=== PATIENT | male | born 1955 | race Hispanic/Latino ===

== ENCOUNTER 2018-01-15 20:52 | Emergency (ER) | payer MEDICARE ==
[~2018-01-15 20:52] MED LIST: ASPI-1197 PO; ATOR10TA69 PO; MULT1CAP32 PO; TAMS0.4C32 PO; TRAM1TAB PO
[2018-01-15] MEDS ORDERED: DEXAMETHASONE SOD PHOSPHATE 10MG/ML 1ML VIAL ONE (23:16)
== END 2018-01-15 23:29 | disposition home or self-care (01) ==
LOC: EDH 20:52
DX: H68.003 Unspecified Eustachian salpingitis, bilateral (principal); I25.10 Atherosclerotic heart disease of native coronary artery without angina pectoris; E78.5 Hyperlipidemia, unspecified
CPT/HCPCS: 96372; 99283; J1100

== ENCOUNTER 2020-02-27 17:51 | Emergency (ER) | payer MEDICARE ==
[2020-02-27] MEDS ORDERED: SODIUM CHLORIDE 0.9% 500ML 500 ML IV ONE (17:52)
[2020-02-27] MEDS ORDERED: SODIUM CHLORIDE IRRIG SOLUTION 1,000 ML IR ONE (17:52)
[2020-02-27] MEDS ORDERED: MECLIZINE HCL 25 MG TABLET ONE ×2 (18:12→19:59)
[2020-02-27] MEDS ORDERED: ONDANSETRON ODT 4 MG TAB ONE (18:12)
[2020-02-27 18:37] LABS: BASOPHILS % (AUTO) 0.5 % (0.0-5.0); EOSINOPHILS % (AUTO) 0.4 % (0.0-8.0); HEMATOCRIT 48.9 % (42-54); MEAN CORPUSCULAR HEMOGLOBIN 27.8 pg (27.0-33.0); MEAN CORPUSCULAR HGB CONC 33.5 g/dL (32.0-36.0); MONOCYTES % (AUTO) 4.4 % (3.0-13.0); NEUTROPHILS % (AUTO) 81.3 % (40.0-77.0); PLATELET COUNT (AUTO) 222 K/uL (130-400); RED BLOOD CELL COUNT(AUTO) 5.89 MIL/uL (4.50-6.20); RED CELL DISTRIBUTION WIDTH 12.8 % (11.0-15.5)
[2020-02-27 18:45] LABS: POTASSIUM 4.5 mmol/L (3.5-5.1)
[2020-02-27 18:50] LABS: ALBUMIN 4.2 g/dL (3.5-5.0); BILIRUBIN,TOTAL 0.4 mg/dL (0.2-1.0); TOTAL PROTEIN, SERUM 8.3 g/dL (6.0-8.3)
== END 2020-02-27 21:23 | disposition home or self-care (01) ==
LOC: EDH 17:51
DX: H81.10 Benign paroxysmal vertigo, unspecified ear (principal); I10 Essential (primary) hypertension; E78.5 Hyperlipidemia, unspecified; I25.10 Atherosclerotic heart disease of native coronary artery without angina pectoris; Z87.891 Personal history of nicotine dependence
CPT/HCPCS: 36415; 80053; 85025; 93005; 96360; 96361; 99284; J7040

== ENCOUNTER 2020-11-29 08:39 | Day surgery (SDC) | payer MEDICARE ==
[2020-11-22 10:39] LABS: BASOPHILS % (AUTO) 0.6 % (0.0-5.0); EOSINOPHILS % (AUTO) 3.6 % (0.0-8.0); HEMATOCRIT 46.6 % (42-54); LYMPHOCYTES % (AUTO) 27.6 % (21.0-51.0); MEAN CORPUSCULAR HGB CONC 33.9 g/dL (32.0-36.0); MEAN CORPUSCULAR VOLUME 82.6 fL (79-99); MONOCYTES % (AUTO) 6.3 % (3.0-13.0); NEUTROPHILS % (AUTO) 61.7 % (40.0-77.0); PLATELET COUNT (AUTO) 230 K/uL (130-400); RED BLOOD CELL COUNT(AUTO) 5.64 MIL/uL (4.50-6.20)
[2020-11-22 10:48] LABS: POTASSIUM 4.2 mmol/L (3.5-5.1)
[2020-11-22 11:31] LABS: INR 1.06 (0.85-1.15); PROTHROMBIN TIME 11.3 SEC (9.6-11.6)
[2020-11-22 11:33] LABS: PARTIAL THROMBOPLASTIN TIME 30.4 SEC (26.3-35.5)
[2020-11-22 11:39] LABS: APPEARANCE,URINE Cloudy (CLEAR); BILIRUBIN,URINE Negative (NEGATIVE); COLOR,URINE Yellow (YELLOW); GLUCOSE, URINE (UA) Negative (NEGATIVE); KETONES,URINE Negative (NEGATIVE); LEUKOCYTE ESTERASE ,URINE Large (NEGATIVE); NITRATE,URINE Negative (NEGATIVE); OCCULT BLOOD,URINE Small (NEGATIVE); PH,URINE 5.5 (5.0-8.0); PROTEIN,URINE POS 1+ mg/dL (NEGATIVE); UROBILINOGEN,URINE 0.2 mg/dL (0.2-1.0)
[2020-11-22 12:21] LABS: BACTERIA,URINE Few /HPF (None Seen); WBC,URINE 51-100 /HPF (0-1)
[2020-11-28 09:23] VITALS: BP 136/87
[~2020-11-29] VITALS: Ht 170.2 cm; Wt 83.9 kg
[~2020-11-29 08:39] MED LIST changes: +ACET1TAB25 PO; -ASPI-1197 PO; -ATOR10TA69 PO; +CEFTRIAXONE SODIUM 1 GM IVP SCH; +LOSA25TA41 PO; -MULT1CAP32 PO; -TAMS0.4C32 PO; -TRAM1TAB PO
[2020-11-29 09:03] VITALS: BP 154/75
[2020-11-29] MEDS ORDERED: GENTAMICIN SULFATE 240 MG in SODIUM CHLORIDE 0.9% 100 ML IV SCH (09:15)
[2020-11-29] MEDS ORDERED: LACTATED RINGERS 1000ML 1,000 ML IV ONE (09:24)
== END 2020-11-29 10:00 | disposition home or self-care (01) ==
LOC: DAH 08:39
PROVIDERS: ATTEND Urology
DX: N40.1 Benign prostatic hyperplasia with lower urinary tract symptoms (principal); I10 Essential (primary) hypertension; M19.90 Unspecified osteoarthritis, unspecified site; Z95.1 Presence of aortocoronary bypass graft; Z20.828 Contact with and (suspected) exposure to other viral communicable diseases; Z79.01 Long term (current) use of anticoagulants; Z79.899 Other long term (current) drug therapy; Z53.8 Procedure and treatment not carried out for other reasons
CPT/HCPCS: 36415; 71045; 80048; 81001; 85025; 85610; 85730; 87077; 87088; 87186; 93005; A4215; A4221; A4222; A4223; A4600; A4657; A4663; A6260; J0696; J1580; J7120; U0003

== ENCOUNTER 2020-12-27 09:29 | Day surgery (SDC) | payer MEDICARE ==
[2020-12-21 11:54] LABS: APPEARANCE,URINE Clear (CLEAR); BILIRUBIN,URINE Negative (NEGATIVE); COLOR,URINE Yellow (YELLOW); GLUCOSE, URINE (UA) Negative (NEGATIVE); KETONES,URINE Negative (NEGATIVE); LEUKOCYTE ESTERASE ,URINE Negative (NEGATIVE); NITRATE,URINE Negative (NEGATIVE); OCCULT BLOOD,URINE Negative (NEGATIVE); PROTEIN,URINE Negative (NEGATIVE); UROBILINOGEN,URINE 0.2 mg/dL (0.2-1.0)
[2020-12-26 11:37] VITALS: BP 158/69
[2020-12-27] VITALS (16 sets, daily range): BP systolic 107–189; BP diastolic 52–98
[~2020-12-27] VITALS: Ht 167.6 cm; Wt 83.0 kg
[~2020-12-27 09:29] MED LIST changes: -ACET1TAB25 PO; -CEFTRIAXONE SODIUM 1 GM IVP SCH; +TAMS-1 PO; +TRAM1TAB PO; +levaquin PO
[2020-12-27] MEDS ORDERED: GENTAMICIN SULFATE 240 MG in SODIUM CHLORIDE 0.9% 100 ML IV SCH (11:21)
[2020-12-27] MEDS ORDERED: SODIUM CHLORIDE 0.9% 1000ML 1,000 ML IV ONE (11:40)
[2020-12-27] MEDS: LEVOFLOXACIN 500 MG/D5W 100 ML 100 ML IV SCH ×2 (11:59→12:35)
[2020-12-27] MEDS ORDERED: LIDOCAINE HCL MPF 1% 5ML VIAL ONE (15:25)
[2020-12-27] MEDS ORDERED: ROCURONIUM 10MG/1ML SYR 10 MG/ML ML ONE (15:25)
[2020-12-27] MEDS ORDERED: ONDANSETRON HCL 4 MG/2 ML VIAL ONE (15:25)
[2020-12-27] MEDS ORDERED: PROPOFOL 10 MG/ML 20ML VIAL IV ONE (15:25)
[2020-12-27] MEDS ORDERED: MIDAZOLAM HCL 1 MG/ML 2ML VIAL ONE (15:25)
[2020-12-27] MEDS ORDERED: FENTANYL CITRATE PF 50 MCG/1 ML 2ML VIAL ONE (15:28)
[2020-12-27] MEDS ORDERED: GLYCOPYRROLATE 1 MG/5 ML SYRINGE ONE (16:55)
[2020-12-27] MEDS ORDERED: NEOSTIGMINE 5MG/5ML SYR IV ONE (16:55)
[2020-12-27] MEDS ORDERED: MEPERIDINE-PF 25 MG/ML SYG ONE ×2 (17:15→17:29)
[2020-12-27] MEDS ORDERED: HYDRALAZINE HCL 20 MG/ML VIAL ONE (17:23)
== END 2020-12-27 18:45 | disposition home or self-care (01) ==
LOC: DAH 09:29
PROVIDERS: ATTEND Urology
DX: D29.1 Benign neoplasm of prostate (principal); Z20.822 Contact with and (suspected) exposure to COVID-19; N41.1 Chronic prostatitis; M19.90 Unspecified osteoarthritis, unspecified site; I10 Essential (primary) hypertension; Z95.1 Presence of aortocoronary bypass graft; Z98.890 Other specified postprocedural states; Z79.899 Other long term (current) drug therapy
CPT/HCPCS: 52648; 81003; 87088; A4215; A4221; A4222; A4223; A4354; A4358; A4663; C9803; J0360; J1580; J2175 ×2; J2250; J2405; J2704; J2710; J3010; J3490 ×2; J7030; J7120; U0003; J1956

== ENCOUNTER 2021-11-30 10:41 | Inpatient (IN) | payer MEDICARE ==
[~2021-11-30] VITALS: Ht 170.2 cm; Wt 81.0 kg
[2021-11-30] MEDS: PHARMACY COMMUNICATION MISC SCH (07:00)
[2021-11-30 11:03] LABS: BASOPHILS % (AUTO) 0.5 % (0.0-5.0); EOSINOPHILS % (AUTO) 0.1 % (0.0-8.0); HEMATOCRIT 51.6 % (42-54); LYMPHOCYTES % (AUTO) 13.4 % (21.0-51.0); MEAN CORPUSCULAR HEMOGLOBIN 27.1 pg (27.0-33.0); MEAN CORPUSCULAR HGB CONC 32.9 g/dL (32.0-36.0); MEAN CORPUSCULAR VOLUME 82.2 fL (79-99); MONOCYTES % (AUTO) 8.2 % (3.0-13.0); NEUTROPHILS % (AUTO) 77.2 % (40.0-77.0); PLATELET COUNT (AUTO) 145 K/uL (130-400); RED BLOOD CELL COUNT(AUTO) 6.28 MIL/uL (4.50-6.20); RED CELL DISTRIBUTION WIDTH 13.8 % (11.0-15.5); WHITE BLOOD COUNT (AUTO) 7.7 K/uL (4.8-10.8)
[2021-11-30 11:31] LABS: ALBUMIN 2.9 g/dL (3.5-5.0); BILIRUBIN,TOTAL 0.9 mg/dL (0.2-1.0); CREATININE 1.2 mg/dL (0.5-1.5); POTASSIUM 3.6 mmol/L (3.5-5.1); TOTAL PROTEIN, SERUM 8.3 g/dL (6.0-8.3)
[2021-11-30 11:33] LABS: ABG HCO3 19.2 mmol/L (21.0-28.0); ABG OXYGEN SATURATION 91.5 % (95.0-99.0); ABG PCO2 28 mmHg (35-48)
[2021-11-30] MEDS ORDERED: DEXAMETHASONE SOD PHOSPHATE 4 MG/ML 1ML VIAL IVP SCH (12:30)
[2021-11-30] MEDS ORDERED: ENOXAPARIN SODIUM 40 MG/0.4 ML SYRINGE SQ SCH ×2 (12:30→21:00)
[2021-11-30] MEDS ORDERED: 0.9%NACL 1000ML 1,000 ML IV SCH ×3 (13:00→17:30)
[2021-11-30 14:30] LABS: HEMOGLOBIN A1C 6.2 % (4.0-6.0)
[2021-11-30] MEDS ORDERED: PHARMACY COMMUNICATION MISC SCH ×2 (14:30→16:30)
[2021-11-30 14:34] LABS: INR 1.05 (0.85-1.15); PROTHROMBIN TIME 11.4 SEC (9.6-11.6)
[2021-11-30 14:35] LABS: PARTIAL THROMBOPLASTIN TIME 32.7 SEC (26.3-35.5)
[2021-11-30 14:49] LABS: ALBUMIN 2.5 g/dL (3.5-5.0); BILIRUBIN,TOTAL 0.7 mg/dL (0.2-1.0); CREATININE 0.9 mg/dL (0.5-1.5); POTASSIUM 3.5 mmol/L (3.5-5.1); THYROID STIMULATING HORMONE 3.09 uIU/mL (0.36-3.74); TOTAL PROTEIN, SERUM 7.3 g/dL (6.0-8.3)
[2021-11-30 15:04] LABS: CRP QUANTITATIVE 192.6 mg/L (0.00-9.0)
[2021-11-30] MEDS ORDERED: COMPOUND IV REFRIGERATED 1 EACH IVSOLN MISC PRN (16:00)
[2021-11-30] MEDS ORDERED: REMDESIVIR (EUA) 520 200 MG in 0.9% NACL 250ML 250 ML IV ONE (16:00)
[2021-11-30] MEDS ORDERED: 0.9% NACL 250ML 250 ML ONE (16:09)
[2021-11-30] MEDS: CEFTRIAXONE 2GM VIAL IVP SCH (16:28)
[2021-11-30] MEDS: DOXYCYCLINE 100MG+NS 250ML IV SCH (16:28)
[2021-11-30] MEDS: DEXAMETHASONE SOD PHOSPHATE 4 MG/ML 1ML VIAL IV SCH (17:00)
[2021-11-30] MEDS: BARICITINIB (EUA) 2 MG TABLET PO SCH (18:10)
[2021-11-30 18:39] LABS: APPEARANCE,URINE Clear (CLEAR); BILIRUBIN,URINE Small (NEGATIVE); COLOR,URINE Dark Yellow (YELLOW); GLUCOSE, URINE (UA) Negative (NEGATIVE); KETONES,URINE Negative (NEGATIVE); LEUKOCYTE ESTERASE ,URINE Negative (NEGATIVE); NITRATE,URINE Negative (NEGATIVE); OCCULT BLOOD,URINE Negative (NEGATIVE); PROTEIN,URINE 300 mg/dL (NEGATIVE)
[2021-11-30 18:56] LABS: BACTERIA,URINE Few /HPF (None Seen); RBC,URINE 0-1 /HPF (0-1); WBC,URINE 0-1 /HPF (0-1)
[2021-11-30 18:57] LABS: MUCUS,URINE Rare LPF (None Seen); SQUAMOUS EPITHELIAL CELL,UR Rare /HPF (0-2)
[2021-11-30] MEDS: LOSARTAN 25 MG TABLET PO SCH (21:30)
[2021-12-01] MEDS ORDERED: 0.9%NACL 100ML 100 ML ONE (02:24)
[2021-12-01] MEDS: DOXYCYCLINE 100MG+NS 250ML IV SCH ×2 (03:05→14:30)
[2021-12-01] MEDS: REMDESIVIR LABS MISC SCH (06:00)
[2021-12-01 06:09] LABS: BASOPHILS % (AUTO) 0.3 % (0.0-5.0); LYMPHOCYTES % (AUTO) 25.6 % (21.0-51.0); MEAN CORPUSCULAR HGB CONC 32.9 g/dL (32.0-36.0); MEAN CORPUSCULAR VOLUME 82.1 fL (79-99); MONOCYTES % (AUTO) 7.6 % (3.0-13.0); NEUTROPHILS % (AUTO) 65.6 % (40.0-77.0); PLATELET COUNT (AUTO) 173 K/uL (130-400); RED BLOOD CELL COUNT(AUTO) 5.97 MIL/uL (4.50-6.20); RED CELL DISTRIBUTION WIDTH 13.9 % (11.0-15.5); WHITE BLOOD COUNT (AUTO) 3.4 K/uL (4.8-10.8)
[2021-12-01 06:29] LABS: ALBUMIN 2.5 g/dL (3.5-5.0); BILIRUBIN,TOTAL 0.5 mg/dL (0.2-1.0); CREATININE 0.7 mg/dL (0.5-1.5); CRP QUANTITATIVE 144.5 mg/L (0.00-9.0); POTASSIUM 3.6 mmol/L (3.5-5.1); TOTAL PROTEIN, SERUM 7.5 g/dL (6.0-8.3)
[2021-12-01] MEDS: PHARMACY COMMUNICATION MISC SCH ×5 (07:00→23:34)
[2021-12-01] MEDS: BARICITINIB (EUA) 2 MG TABLET PO SCH (10:01)
[2021-12-01] MEDS: ENOXAPARIN SODIUM 40 MG/0.4 ML SYRINGE SQ SCH ×2 (10:52→22:16)
[2021-12-01] MEDS: CEFTRIAXONE 2GM VIAL IVP SCH (14:30)
[2021-12-01] MEDS: REMDESIVIR (EUA) 520 100 MG in 0.9% NACL 250ML 250 ML IV SCH (16:11)
[2021-12-01] MEDS: DEXAMETHASONE SOD PHOSPHATE 4 MG/ML 1ML VIAL IV SCH (17:03)
[2021-12-01 20:00] VITALS: BP 148/79
[2021-12-01] MEDS: LOSARTAN 25 MG TABLET PO SCH (22:15)
[2021-12-02] VITALS (7 sets, daily range): BP systolic 133–165; BP diastolic 67–84
[2021-12-02] MEDS: SOLU-MEDROL 125MG VIAL IVP SCH ×4 (00:14→23:02)
[2021-12-02] MEDS: DOXYCYCLINE 100MG+NS 250ML IV SCH ×2 (02:48→13:42)
[2021-12-02 04:41] LABS: HEMATOCRIT 50.1 % (42-54); MEAN CORPUSCULAR HEMOGLOBIN 27.3 pg (27.0-33.0); MEAN CORPUSCULAR HGB CONC 32.9 g/dL (32.0-36.0); MEAN CORPUSCULAR VOLUME 82.8 fL (79-99); RED BLOOD CELL COUNT(AUTO) 6.05 MIL/uL (4.50-6.20); RED CELL DISTRIBUTION WIDTH 13.9 % (11.0-15.5); WHITE BLOOD COUNT (AUTO) 7.2 K/uL (4.8-10.8)
[2021-12-02 04:55] LABS: ALBUMIN 2.6 g/dL (3.5-5.0); BILIRUBIN,TOTAL 0.5 mg/dL (0.2-1.0); CREATININE 0.8 mg/dL (0.5-1.5); TOTAL PROTEIN, SERUM 7.4 g/dL (6.0-8.3)
[2021-12-02] MEDS: REMDESIVIR LABS MISC SCH (06:35)
[2021-12-02 07:16] LABS: ABG BASE EXCESS -1.9 mmol/L (-2.0-3.0); ABG OXYGEN SATURATION 97.1 % (95.0-99.0); ABG PCO2 31 mmHg (35-48)
[2021-12-02] MEDS: ENOXAPARIN SODIUM 40 MG/0.4 ML SYRINGE SQ SCH ×2 (08:08→20:56)
[2021-12-02] MEDS: BARICITINIB (EUA) 2 MG TABLET PO SCH (09:57)
[2021-12-02] MEDS: CEFTRIAXONE 2GM VIAL IVP SCH (13:41)
[2021-12-02] MEDS: INSULIN HUMULIN R 100 UNIT/ML 3ML SQ SCH ×2 (16:30→20:56)
[2021-12-02] MEDS: REMDESIVIR (EUA) 520 100 MG in 0.9% NACL 250ML 250 ML IV SCH (17:08)
[2021-12-02] MEDS: LOSARTAN 25 MG TABLET PO SCH (20:55)
[2021-12-02] MEDS: FAMOTIDINE 20MG VIAL IV SCH (20:55)
[2021-12-03] MEDS: ZOSYN 3.375GM +NS 50ML IV SCH ×3 (01:40→20:31)
[2021-12-03] MEDS: DOXYCYCLINE 100MG+NS 250ML IV SCH ×2 (02:47→15:16)
[2021-12-03 03:43] VITALS: BP 146/75
[2021-12-03] MEDS: INSULIN HUMULIN R 100 UNIT/ML 3ML SQ SCH ×4 (05:01→20:45)
[2021-12-03 05:33] VITALS: BP 163/92
[2021-12-03] MEDS: SOLU-MEDROL 125MG VIAL IVP SCH ×3 (05:38→23:55)
[2021-12-03] MEDS: HYDRALAZINE 20MG/ML VIAL IV PRN ×2 (05:38→08:41)
[2021-12-03] MEDS: REMDESIVIR LABS MISC SCH (06:00)
[2021-12-03 07:25] VITALS: BP 176/74
[2021-12-03 07:44] LABS: HEMATOCRIT 47.2 % (42-54); MEAN CORPUSCULAR HEMOGLOBIN 26.8 pg (27.0-33.0); MEAN CORPUSCULAR HGB CONC 33.3 g/dL (32.0-36.0); MEAN CORPUSCULAR VOLUME 80.7 fL (79-99); RED BLOOD CELL COUNT(AUTO) 5.85 MIL/uL (4.50-6.20); RED CELL DISTRIBUTION WIDTH 13.5 % (11.0-15.5); WHITE BLOOD COUNT (AUTO) 11.2 K/uL (4.8-10.8)
[2021-12-03 08:01] LABS: CREATININE 0.8 mg/dL (0.5-1.5); CRP QUANTITATIVE 32.9 mg/L (0.00-9.0); POTASSIUM 3.1 mmol/L (3.5-5.1)
[2021-12-03] MEDS: FAMOTIDINE 20MG VIAL IV SCH ×2 (08:41→20:31)
[2021-12-03] MEDS: BARICITINIB (EUA) 2 MG TABLET PO SCH (08:41)
[2021-12-03] MEDS: APIXABAN 2.5 MG TABLET PO SCH ×2 (08:42→20:31)
[2021-12-03 11:00] VITALS: BP 150/61
[2021-12-03] MEDS ORDERED: POTASSIUM CHLORIDE 10% ELIXIR 20 MEQ/15 ML UDCUP PO PRN (12:00)
[2021-12-03] MEDS ORDERED: POTASSIUM CHLORIDE 20MEQ/100ML 100 ML IV PRN (12:00)
[2021-12-03] MEDS ORDERED: LIDOCAINE HCL-MPF 1% 2ML VIAL IV PRN (12:00)
[2021-12-03 13:14] LABS: ALBUMIN 2.9 g/dL (3.5-5.0); BILIRUBIN,TOTAL 0.6 mg/dL (0.2-1.0); TOTAL PROTEIN, SERUM 7.3 g/dL (6.0-8.3)
[2021-12-03] MEDS: KCL 20 MEQ ERTAB PO PRN ×3 (13:17→20:30)
[2021-12-03 15:10] VITALS: BP 147/62
[2021-12-03] MEDS: REMDESIVIR (EUA) 520 100 MG in 0.9% NACL 250ML 250 ML IV SCH (18:14)
[2021-12-03 20:00] VITALS: BP 149/85
[2021-12-03] MEDS: LOSARTAN 25 MG TABLET PO SCH (20:30)
[2021-12-04] VITALS: BP 149/76
[2021-12-04] MEDS: DOXYCYCLINE 100MG+NS 250ML IV SCH (00:47)
[2021-12-04 04:00] VITALS: BP 144/71
[2021-12-04] MEDS: ZOSYN 3.375GM +NS 50ML IV SCH (05:05)
[2021-12-04 05:43] LABS: HEMATOCRIT 44.8 % (42-54); MEAN CORPUSCULAR HEMOGLOBIN 27.4 pg (27.0-33.0); MEAN CORPUSCULAR HGB CONC 33.7 g/dL (32.0-36.0); MEAN CORPUSCULAR VOLUME 81.2 fL (79-99); RED BLOOD CELL COUNT(AUTO) 5.52 MIL/uL (4.50-6.20); RED CELL DISTRIBUTION WIDTH 13.8 % (11.0-15.5); WHITE BLOOD COUNT (AUTO) 8.7 K/uL (4.8-10.8)
[2021-12-04] MEDS: REMDESIVIR LABS MISC SCH (06:00)
[2021-12-04] MEDS: INSULIN HUMULIN R 100 UNIT/ML 3ML SQ SCH (06:09)
[2021-12-04] MEDS: SOLU-MEDROL 125MG VIAL IVP SCH (06:17)
[2021-12-04 06:24] LABS: ALBUMIN 2.6 g/dL (3.5-5.0); BILIRUBIN,TOTAL 0.8 mg/dL (0.2-1.0); CREATININE 0.8 mg/dL (0.5-1.5); CRP QUANTITATIVE 18.4 mg/L (0.00-9.0); POTASSIUM 3.6 mmol/L (3.5-5.1); TOTAL PROTEIN, SERUM 6.6 g/dL (6.0-8.3)
[2021-12-04 08:00] VITALS: BP 147/60
[2021-12-04] MEDS: FAMOTIDINE 20MG VIAL IV SCH (08:49)
[2021-12-04] MEDS: APIXABAN 2.5 MG TABLET PO SCH (08:49)
[2021-12-04] MEDS: KCL 20 MEQ ERTAB PO PRN (08:51)
[2021-12-04] MEDS ORDERED: APIX2.5T PO (08:58)
[2021-12-04] MEDS: BARICITINIB (EUA) 2 MG TABLET PO SCH (10:35)
== END 2021-12-04 11:18 | disposition home or self-care (01) | DRG 871 ==
LOC: EDH 10:41 → EDHIP 13:42 → 4BH 12-01 18:35
PROVIDERS: ADMIT Hospitalist; ATTEND Hospitalist
PROC: XW033E5 Introduction of Remdesivir Anti-infective into Peripheral Vein, Percutaneous Approach, New Technology Group 5 (ICD-10-PCS; principal; 2021-11-30)
PROC: XW0DXM6 Introduction of Baricitinib into Mouth and Pharynx, External Approach, New Technology Group 6 (ICD-10-PCS; 2021-11-30)
PROC: 5A09357 Assistance with Respiratory Ventilation, Less than 24 Consecutive Hours, Continuous Positive Airway Pressure (ICD-10-PCS; 2021-11-30)
PROC: 5A0935A Assistance with Respiratory Ventilation, Less than 24 Consecutive Hours, High Flow/Velocity Cannula (ICD-10-PCS; 2021-12-02)
PROC: 5A0935A Assistance with Respiratory Ventilation, Less than 24 Consecutive Hours, High Flow/Velocity Cannula (ICD-10-PCS; 2021-12-03)
DX: A41.89 Other specified sepsis (principal); U07.1 COVID-19; J12.82 Pneumonia due to coronavirus disease 2019; J96.01 Acute respiratory failure with hypoxia; E43 Unspecified severe protein-calorie malnutrition; D68.69 Other thrombophilia; J47.0 Bronchiectasis with acute lower respiratory infection; E11.65 Type 2 diabetes mellitus with hyperglycemia; I10 Essential (primary) hypertension; E87.6 Hypokalemia; N40.0 Benign prostatic hyperplasia without lower urinary tract symptoms; E78.5 Hyperlipidemia, unspecified; R54 Age-related physical debility; I25.10 Atherosclerotic heart disease of native coronary artery without angina pectoris; E78.00 Pure hypercholesterolemia, unspecified; E86.0 Dehydration; Z53.29 Procedure and treatment not carried out because of patient's decision for other reasons; J43.9 Emphysema, unspecified; Z68.28 Body mass index [BMI] 28.0-28.9, adult; Z88.6 Allergy status to analgesic agent; Z79.01 Long term (current) use of anticoagulants; Z92.21 Personal history of antineoplastic chemotherapy; Z92.3 Personal history of irradiation; Z95.1 Presence of aortocoronary bypass graft; Z85.819 Personal history of malignant neoplasm of unspecified site of lip, oral cavity, and pharynx; Z82.3 Family history of stroke; Z83.3 Family history of diabetes mellitus; Z82.0 Family history of epilepsy and other diseases of the nervous system; Z82.49 Family history of ischemic heart disease and other diseases of the circulatory system
CPT/HCPCS: 36415; 36600; 70450; 71045; 71250; 80053; 81001; 82728; 82803; 82948; 83036; 83605; 83615; 84145; 84443; 84484; 85025; 85027; 85378; 85610; 85730; 86140; 86738; 87040; 87449; 87635; 87804; 93005; 93970; 94667; 94668; 99291; C9803; G0378; J0360; J0696; J1100; J1650; J1815; J2543; J2930; J3490; J7050

== ENCOUNTER 2025-03-03 14:23 | Emergency (ER) | payer OTHER ==
[~2025-03-03] VITALS: Ht 170.2 cm; Wt 88.5 kg
[~2025-03-03 14:23] MED LIST changes: +LEVO25CA5 PO; +LORA10TA7 PO; -LOSA25TA41 PO; +LOSA50TA64 PO; +ROSU40TA88 PO; -TAMS-1 PO; -TRAM1TAB PO; -levaquin PO
[2025-03-03 14:24] VITALS: BP 124/74; PULSE 95; RESP 16; TEMP 97.9
[2025-03-03 14:49] LABS: BASOPHILS # (AUTO) 0.07 K/uL (0.00-0.20); BASOPHILS % (AUTO) 0.7 % (0.0-5.0); EOSINOPHILS # (AUTO) 0.21 K/uL (0.00-0.70); EOSINOPHILS % (AUTO) 2.2 % (0.0-8.0); HEMATOCRIT 43.6 % (42-54); IMMATURE GRANULOCYTE ABSOLUTE 0.04 K/uL (0-1); LYMPHOCYTES # (AUTO) 2.3 K/uL (1.0-4.8); LYMPHOCYTES % (AUTO) 24.3 % (21.0-51.0); MEAN CORPUSCULAR HGB CONC 33.5 g/dL (32.0-36.0); MEAN CORPUSCULAR VOLUME 83.5 fL (79-99); MONOCYTES # (AUTO) 0.7 K/uL (0.1-1.0); MONOCYTES % (AUTO) 7.1 % (3.0-13.0); NEUTROPHILS # (AUTO) 6.1 K/uL (1.8-7.7); NEUTROPHILS % (AUTO) 65.3 % (40.0-77.0); PLATELET COUNT (AUTO) 309 K/uL (130-400); RED BLOOD CELL COUNT(AUTO) 5.22 MIL/uL (4.50-6.20); WHITE BLOOD COUNT (AUTO) 9.4 K/uL (4.8-10.8)
[2025-03-03 15:05] LABS: CREATININE 1.1 mg/dL (0.5-1.3); POTASSIUM 4.2 mmol/L (3.5-5.1)
--- NOTE | 2025-03-03 15:20 | ERN ---
General Chief Complaint: Abdominal Pain Stated Complaint: ABDOMINAL PAIN Time Seen by MD: 14:26 Time Seen by Midlevel: 14:26 Source: patient History of Present Illness Initial Comments The patient is a 69-year-old male with a past medical history of BPH and urinary retention presenting to the emergency department with suprapubic abdominal pain. The patient recently had a Henry placed but was removed four days ago. Since then he has had difficulty urinating. Today he has had an increase in abdominal pain and has been unable to void. Patient believes he may need the Henry placed again. He has a follow up with his urologist later this month. Allergies: Coded Allergies: No Known Drug Allergies (Unverified Allergy, Unknown, 07/01/19) aspirin (Unverified Allergy, Unknown, 11/30/21) Home Meds Reported Medications Rosuvastatin Calcium (Rosuvastatin Calcium) 40 Mg Tablet, 1 TAB PO DAILY for high cholesterol for 30 Days, #30 TAB 0 Refills 02/21/25 Levothyroxine Sodium (Levothyroxine) 25 Mcg Capsule, 25 MCG PO DAILY, CAP 02/21/25 Loratadine (Loratadine) 10 Mg Tablet, 1 TAB PO DAILY for allergy symptoms for 30 Days, #30 TAB 0 Refills 02/21/25 Losartan Potassium (Losartan Potassium) 50 Mg Tablet, 1 TAB PO DAILY for 30 Days, #30 TAB 0 Refills 02/21/25 Past Medical History Past Medical History: CAD, Hypertension Medical History Other: CANCER THROAT, Past Surgical History: Appendectomy, CABG Surgical History Other: HEART STENTS, ABD SX Social History Social History: Other ROS Dictation CONSTITUTIONAL: Negative except for HPI HEAD/FACE: Negative except for HPI EENT: Negative except for HPI RESPIRATORY: Negative except for HPI GASTROINTESTINAL/ABDOMINAL: Negative except for HPI GENITOURINARY: Negative except for HPI MUSCULOSKELETAL: Negative except for HPI INTEGUMENTARY: Negative except for HPI NEUROLOGICAL/PSYCH: Negative except for HPI HEMATOLOGIC/LYMPHATIC: Negative except for HPI All Systems Negative, Except as noted above. 13 point review of systems assessed and all negative except for above. Physical Exam Physical Exam Dictation Vital Signs reviewed General Appearance: Alert, oriented x 3, no acute distress, well developed, nourished. Head and Face: non-traumatic. Eyes: PERRL, pink conjunctivas, eyelid no trauma, anterior chamber with arcus senilis. Ears: Pinnas intact and no signs of trauma or erythema ear canals clear and no discharge TM no erythema Nose: No discharge, no bleeding. Oropharynx: Mouth normal, tongue pink, pharynx clear,no erythema, tonsils no exudates, no abscesses noted, mucous membrane moist Neck: Supple, non-tender, no thyromegaly, no masses, no JVD, no bruits Breast:Deferred Chest:No tenderness, no crepitus, no paradoxical movement, no retractions Lungs:Clear, well-ventilated, symmetric, no rales, no wheezing, no rhonchi, no stridor, good breath sounds bilaterally Heart: Regular rate, regular rhythm, no murmur, no gallops Vascular: no peripheral edema, Abdomen: Soft, positive bowel sounds, nondistended, no guarding, Suprapubic abdominal tenderness, no rebound, no masses no hepatomegaly, no splenomegaly, no Briggs's sign, no hernias. Rectal: Deferred Genital: Deferred Neurological: Normal speech, motor function intact, sensory function intact Musculoskeletal: Neck nontender, full range of motion, back nontender, full range of motion, Extremities: nontender, full range of motion Skin: Color pink, dry, no turgor, no rash, no lacerations, no abrasions, no contusions. Lymphatic: Deferred Results Laboratory and Microbiology Lab and Micro Result Laboratory Tests Test 03/03/25 14:38 White Blood Count 9.4 K/uL (4.8-10.8) Red Blood Count 5.22 MIL/uL (4.50-6.20) Hemoglobin 14.6 g/dL (14.0-18.0) Hematocrit 43.6 % (42-54) Mean Corpuscular Volume 83.5 fL (79-99) Mean Corpuscular Hemoglobin 28.0 pg (27.0-33.0) Mean Corpuscular Hemoglobin Concent 33.5 g/dL (32.0-36.0) Red Cell Distribution Width 13.0 % (11.0-15.5) Platelet Count 309 K/uL (130-400) Mean Platelet Volume 10.0 fL (7.5-10.5) Immature Granulocyte % (Auto) 0.4 % (0-1) Neutrophils (%) (Auto) 65.3 % (40.0-77.0) Lymphocytes (%) (Auto) 24.3 % (21.0-51.0) Monocytes (%) (Auto) 7.1 % (3.0-13.0) Eosinophils (%) (Auto) 2.2 % (0.0-8.0) Basophils (%) (Auto) 0.7 % (0.0-5.0) Neutrophils # (Auto) 6.1 K/uL (1.8-7.7) Lymphocytes # (Auto) 2.3 K/uL (1.0-4.8) Monocytes # (Auto) 0.7 K/uL (0.1-1.0) Eosinophils # (Auto) 0.21 K/uL (0.00-0.70) Basophils # (Auto) 0.07 K/uL (0.00-0.20) Absolute Immature Granulocyte (auto 0.04 K/uL (0-1) Nucleated Red Blood Cells 0.0 % (0.0-0.19) Sodium Level 139 mmol/L (136-145) Potassium Level 4.2 mmol/L (3.5-5.1) Chloride Level 103 mmol/L (101-111) Carbon Dioxide Level 28 mmol/L (21-32) Blood Urea Nitrogen 15 mg/dL (7-18) Creatinine 1.1 mg/dL (0.5-1.3) Glomerular Filtration Rate Calc 72 mL/min (>90) Random Glucose 109 mg/dL (70-105) H Total Calcium 9.2 mg/dL (8.5-10.1) Labs Reviewed?: Yes MDM MDM: The patient is a 69-year-old male with a past medical history of BPH and urinary retention presenting to the emergency department with suprapubic abdominal pain. The patient recently had a Henry placed but was removed four days ago. Since then he has had difficulty urinating. Today he has had an increase in abdominal pain and has been unable to void. Patient believes he may need the Henry placed again. He has a follow up with his urologist later this m [facility]. On physical examination the patient is in [id number] distress. There is suprapubic abdominal tenderness. I have high clinical suspicion for acute urinary retention. A Henry catheter was placed and we received 800 cc of urine output. Patient felt significant relief. CBC and chemistries were obtained to rule out an acute kidney injury however chemistries unremarkable. The patient will be discharged home with a Henry and will be following up with urologist outpatient. Differential diagnosis: Acute urinary retention, ROSALIE, dehydration There are no social concerns with this patient. Prescription drug management Prescriptions will include: None Medical management and examination interpretation discussions were had by me with other qualified healthcare professionals as indicated for the patient's care. ED Course Orders Procedure Category Date Status Time Basic Metabolic Panel LAB 03/03/25 Complete 14: Cbc With Differential LAB 03/03/25 Complete 14:26 Nurse Driven Henry CLAUDIA 03/03/25 In Process Removal Pro 14: Vital Signs Date Time Temp Pulse Resp B/P (MAP) Pulse Ox O2 Delivery O2 Flow Rate FiO2 03/03/25 14:24 97.9 95 16 124/74 98 Room Air DX & DISP Disposition: Discharge Departure Impression: Primary Impression: Acute urinary retention Condition: Stable Referrals: ANTONIO MONTOYA MD (PCP) I have reviewed the case, and I agree with, Diagnosis and Plan I performed the substantive portion of the visit. I have reviewed and person ally made and approve the management plan that is documented in the note by myself or the NICOLETTE. I acknowledge for responsibility for the patient's management plan. MILY CALL March 03, 2025 15:20
== END 2025-03-03 15:47 | disposition home or self-care (01) ==
LOC: EDH 14:23
DX: R33.8 Other retention of urine (principal); R10.30 Lower abdominal pain, unspecified; I10 Essential (primary) hypertension; I25.10 Atherosclerotic heart disease of native coronary artery without angina pectoris; Z79.890 Hormone replacement therapy; Z79.899 Other long term (current) drug therapy; Z88.6 Allergy status to analgesic agent; Z90.49 Acquired absence of other specified parts of digestive tract; Z95.1 Presence of aortocoronary bypass graft; Z95.5 Presence of coronary angioplasty implant and graft
CPT/HCPCS: 36415; 51702; 80048; 85025; 99283

== ENCOUNTER → 2025-04-03 | Outpatient (CLI) | payer OTHER ==
[~2025-04-03] MED LIST changes: +IOHEXOL 350 MG/ML 100ML INFUS..BTL IV ONE
--- NOTE | 2025-04-04 10:46 | HMCIMG ---
CT UROGRAM (ABD/PEL WWO) REASON: HEMATURIA COMPARISON: 02/21/2025 TECHNIQUE: CT abdomen and pelvis was performed before, during and after IV contrast, 100 cc Omnipaque [id number]. Multiple postcontrast of the images are obtained through 25 minutes, for CT urogram technique. Maximum pixel intensity projection images were generated of the ureters and urinary bladder. FINDINGS: Lung bases are clear. There are no focal liver lesions. There are normal-appearing kidneys.. Spleen and pancreas appear unremarkable. The gallbladder appears normal as well. There is moderate sigmoid diverticulosis without evidence of diverticulitis. Bowel loops appear otherwise unremarkable. This includes normal appearance of the appendix There is no evidence of free fluid or intraperitoneal air. There are no focal fluid collections. Aorta and retroperitoneum appear normal. The prostate is enlarged at 7.7 x 6.2 x 6.7 cm. There is a Henry catheter in urinary bladder. Bladder appears moderately thick-walled. The anterior abdominal wall is intact. Osseous structures appear unremarkable. Postcontrast images show normal-appearing kidneys. Kidneys appear normal with no mass, stone or hydronephrosis. Ureters appear normal in course and caliber. CT or gram images also show normal-appearing ureters and pelvicalyceal structures. There is no evidence of ureteral mass or stone. There is no evidence of ureteral narrowing. Urinary bladder appears thick-walled even when partially distended. IMPRESSION: 1. Markedly enlarged prostate isn't 0.7 x 6.2 x 6.7 cm, there is moderate wall thickening of the urinary bladder. 2. Normal-appearing kidneys and ureters on CT urogram (technique abdomen and pelvis. 3. Moderate sigmoid diverticulosis without evidence of diverticulitis. CT was performed with one or more following dose reduction techniques: automated exposure control, adjustment of the mA and kv according to patient's size, or use of a iterative reconstruction technique.
== END | disposition home or self-care (01) ==
LOC: RAH 09:45
PROVIDERS: ATTEND Student in an Organized Health Care Education/Training Program
DX: N40.0 Benign prostatic hyperplasia without lower urinary tract symptoms (principal); K57.30 Diverticulosis of large intestine without perforation or abscess without bleeding; N32.89 Other specified disorders of bladder; R31.9 Hematuria, unspecified; Z96.0 Presence of urogenital implants
CPT/HCPCS: 74178; Q9967

== ENCOUNTER 2025-06-13 00:50 | Emergency (ER) | payer OTHER ==
[~2025-06-13] VITALS: Ht 170.2 cm; Wt 83.0 kg
[~2025-06-13 00:50] MED LIST changes: -IOHEXOL 350 MG/ML 100ML INFUS..BTL IV ONE
[2025-06-13 01:14] VITALS: BP 170/68; PULSE 94; RESP 17; TEMP 97.9; O2SAT 95
--- NOTE | 2025-06-13 01:18 | NUR ---
PER MARIANA PRINCE, LEG BAG REPLACED. NEW BAG ATTACHED TO [place]IN[place] AND DRAINING NORMALLY.
--- NOTE | 2025-06-13 01:21 | ERN ---
General Chief Complaint: Urinary Catheter Problems Stated Complaint: C/O TEAR TO URINE BAG Time Seen by MD: 01:02 Time Seen by Midlevel: 01:02 Source: patient History of Present Illness Initial Comments 69-year-old male who presents to the emergency department due to Henry bag problem. Patient states he was asleep and felt urine leaking out of his bag. H e noticed a hole in the bag. The patient denies any who we discomfort, abdominal pain, fever or further associated symptoms. Allergies: Coded Allergies: No Known Drug Allergies (Unverified Allergy, Unknown, 07/01/19) aspirin (Unverified Allergy, Unknown, 11/30/21) Home Meds Reported Medications Rosuvastatin Calcium (Rosuvastatin Calcium) 40 Mg Tablet, 1 TAB PO DAILY for high cholesterol for 30 Days, #30 TAB 0 Refills 02/21/25 Levothyroxine Sodium (Levothyroxine) 25 Mcg Capsule, 25 MCG PO DAILY, CAP 02/21/25 Loratadine (Loratadine) 10 Mg Tablet, 1 TAB PO DAILY for allergy symptoms for 30 Days, #30 TAB 0 Refills 02/21/25 Losartan Potassium (Losartan Potassium) 50 Mg Tablet, 1 TAB PO DAILY for 30 Days, #30 TAB 0 Refills 02/21/25 Past Medical History Past Medical History: High Cholesterol, Hypertension Medical History Other: CANCER THROAT, Past Surgical History: Other Surgical History Other: HEART STENTS, ABD SX Social History Social History: Other ROS Dictation Constitutional: Negative for fever,chills, and weight loss Eyes: Negative for injury, pain,redness, and discharge ENT: Negative for injury,pain or swelling Cardiovascular: Negative for chest pain, palpitations, and edema Respiratory: Negative for shortness of breath, cough, and wheezing, Abdomen/GI: Negative for abdominal pain, nausea, vomiting, diarrhea, and constipation Back: Negative for injury and pain : Negative for painful urination, bleeding or discharge MS/Extremity: Negative for injury and deformity Skin: Negative for rash, and discoloration Neuro: Negative for headache, weakness, numbness, tingling, and seizure Psych: Negative for suicide ideation, homicidal ideation, and hallucinations Physical Exam Physical Exam Dictation General: awake, alert, no acute distress Head/Face: Normocephalic, atraumatic Eyes: PERRL, EOMI, normal conjunctiva ENT: oral cavity clear, oral mucosa moist Neck: Supple, normal range of motion Cardiovascular: RRR, normal S1/S2 Respiratory: CTAB, no respiratory distress Abdomen: Soft, non-tender, non-distended, no guarding or rebound. Skin: Warm, dry, normal turgor, no rash MS/Extremity: Pulses equal, no cyanosis, neurovascular intact, FROM Neuro: COAx4, GCS 15, strength 5/5, CN 2-12 intact, normal cerebellar exam, normal gait Psych: Normal behavior, mood, and affect normal MDM MDM: Differential diagnosis: UTI, Henry bag problem, catheter problem Rationale: 69-year-old male who presents to the emergency department due to Henry bag problem. Patient states he was asleep and felt urine leaking out of his bag. He noticed a hole in the bag. The patient denies any who we discomfor t, abdominal pain, fever or further associated symptoms. Tear noted on Henry bag, replaced in the emergency department. Patient continued to deny any current symptoms. Advised to follow up with PCP. Return to the emergency department for any worsening symptoms. Patient verbalized understanding. Patient is stable for discharge. There are no social concerns with this patient. I independently interpreted the test that were performed, results were reviewed by me and considered findings on radiology if ordered. Medical management and examination interpretation discussions were had by me with other qualified healthcare professionals as indicated for the patient's care. ED Course Vital Signs Date Time Temp Pulse Resp B/P (MAP) Pulse Ox O2 Delivery O2 Flow Rate FiO2 06/13/25 01:14 97.9 94 17 170/68 95 Room Air* 0 21 06/13/25 00:51 97.5 65 20 177/65 96 Room Air DX & DISP Disposition: Discharge Departure Impression: Primary Impression: Henry catheter problem Condition: Stable Additional Instructions: Discharge home. Rest. Follow up with primary care DrJade in 24 hours. Return to the ER for any acute changes or worsening symptoms. If any medications were prescribed take as directed. Okay to continue home medications unless otherwise discussed during your visit in the emergency room today. Patient was also advised to follow-up with primary care physician in 1 to 2 days for continued monitoring. Referrals: ANTONIO MONTOYA MD (PCP) I performed the substantive portion of the visit. I have reviewed and personally made and approve the management plan that is documented in the notes by myself or the NICOLETTE. I acknowledge full responsibility for the patient's management plan. FRITZ ALVARES Jun 13, 2025 01:21
== END 2025-06-13 01:25 | disposition home or self-care (01) ==
LOC: EDH 00:50
DX: T83.038A Leakage of other urinary catheter, initial encounter (principal); E78.00 Pure hypercholesterolemia, unspecified; I10 Essential (primary) hypertension; Z79.899 Other long term (current) drug therapy; Z88.6 Allergy status to analgesic agent; Z95.5 Presence of coronary angioplasty implant and graft; Z79.890 Hormone replacement therapy; Y82.8 Other medical devices associated with adverse incidents; Y92.89 Other specified places as the place of occurrence of the external cause
CPT/HCPCS: 99281; 99282